=== PATIENT | female | born 1995 | race African-American/Black ===

== ENCOUNTER 2018-06-05 16:54 | Outpatient (CLI) | payer OTHER ==
--- NOTE | 2018-06-05 22:30 | Ultrasound Report ---
Reason: GROIN PAIN,RIGHT Procedure Date: 06/05/2018 Accession Number: [id number] / [id number] Procedure: US - Pelvic w/Transvaginal CPT Code: FULL RESULT: EXAM: PELVIC ULTRASOUND EXAM DATE: 06/05/2018 05:36 PM. CLINICAL HISTORY: GROIN PAIN,RIGHT. COMPARISON: None. TECHNIQUE: Realtime transabdominal pelvic scan performed to identify the uterus and adnexa and as an overview of other pelvic structures, followed by transvaginal scan to provide greater detail of the uterus and adnexa, with static image documentation. FINDINGS: Uterus: 7.4 x 2.5 x 3.8 cm, volume 36.8 cc. Anteverted position. Normal overall size and echotexture. Masses: None. Endometrium: 2 mm. No focal endometrial abnormalities. Cervix: Unremarkable. Right Ovary: 3.3 x 2.5 x 2.6 cm, volume 11.2 cc. Normal echotexture and blood flow. Left Ovary: 2.3 x 1.7 x 2.9 cm, volume 5.9 cc. Normal echotexture and blood flow. Free Fluid: None. Other: None. IMPRESSION: No acute sonographic abnormalities. RADIA
== END 2018-06-05 16:55 | disposition home or self-care (01) ==
LOC: DI 16:54
PROVIDERS: ATTEND Internal Medicine Gastroenterology
DX: R10.31 Right lower quadrant pain (principal)
CPT/HCPCS: 76830; 76856

== ENCOUNTER 2018-07-10 08:03 | Day surgery (SDC) | payer OTHER ==
[2018-07-10] MEDS ORDERED: LACTATED RINGERS 1,000 ML IV ONE (08:15)
[2018-07-10 08:29] LABS: HCG UR QUAL NEGATIVE
--- NOTE | 2018-07-10 08:45 | ANESTHESIA ---
Pre-Anesthesia VS, & Labs - Diagnosis Left lower quadrant ABD pain - Procedure Diagnostic Laparoscopy Vital Signs: Temp Pulse Resp BP Pulse Ox 36 C L 80 16 119/77 0 L 07/10/18 08:19 07/10/18 08:19 07/10/18 08:19 07/10/18 08:19 07/10/18 08:19 Height 5 ft 9.69 in Weight (kg) 63.2 kg - Is Patient ?: No - Lab Results Lab results reviewed: Yes Home Medications and Allergies Home Medications: Ambulatory Orders Desogestrel-Ethinyl Estradiol [Desogest-Eth Estra 0.15-0.03MG] 1 each PO 07/07/18 Desogestrel-Ethinyl Estradiol [Desogest-Eth Estra 0.15-0.03MG] 1 each PO 07/07/18 Allergies/Adverse Reactions: Allergies Allergy/AdvReac Type Severity Reaction Status Date / Time No Known Drug Allergies Allergy Verified 07/07/18 10:54 Anes History & Medical History - Anesthetic History Anesthesia Complications: reports: No previous complications Family history of Anesthesia Complications: Denies Family history of Malignant Hyperthermia: Denies - Medical History Cardiovascular: reports: None Pulmonary: reports: None Gastrointestinal: reports: None Urinary: reports: None, Other Neuro: reports: None Musculoskeletal: reports: None Endocrine/Autoimmune: reports: None Blood Disorders: reports: None Skin: reports: None Smoking Status: Never smoker Psychosocial: reports: No issues indicated - Surgical History General: Other Exam General: Alert, Oriented x3, Cooperative, No acute distress Dental: WNL Mouth Openin Fingerbreadth Neck Mobility: Normal Mallampati classification: I Thyromental Distance: 4-6 cm Respiratory: Lungs clear Cardiovascular: Regular rate Mental/Cognitive Status: Alert/Oriented X3 Cognitive Status: Within normal limits Plan Anesthesia Type: General Consent for Procedure(s) Verified and Reviewed: Yes Code Status: Attempt Resuscitation ASA classification: 1-Healthy patient Is this case an emergency?: No
[2018-07-10] MEDS ORDERED: BUPIVACAINE 0.5%-EPI 1:200000 PF 30 ML VIAL ONE (09:05)
[2018-07-10] MEDS ORDERED: LIDOCAINE-MPF 2% 5 ML VIAL IM ONE (09:32)
[2018-07-10] MEDS ORDERED: MIDAZOLAM 2 MG/2 ML VIAL IVP ONE (09:32)
[2018-07-10] MEDS ORDERED: KETOROLAC 30 MG/ML VIAL IVP ONE (09:32)
[2018-07-10] MEDS ORDERED: DEXAMETHASONE 4 MG/ML VIAL IVP ONE (09:32)
[2018-07-10] MEDS ORDERED: fentaNYL 100 MCG/2 ML VIAL IVP ONE (09:32)
[2018-07-10] MEDS ORDERED: ROCURONIUM 50 MG/5 ML VIAL IVP ONE (09:32)
[2018-07-10] MEDS ORDERED: NEOSTIGMINE 1 MG/1 ML 10 ML MDV IVP ONE (09:32)
[2018-07-10] MEDS ORDERED: GLYCOPYRROLATE 1 MG/5 ML VIAL IVP ONE (09:32)
[2018-07-10] MEDS ORDERED: BUPIVACAINE 0.5%-EPI 1:200000 PF 30 ML VIAL SUBQ ONE (09:46)
[2018-07-10] MEDS ORDERED: HYDROcod/ACETAM 10 MG/325 MG TABLET PO PRN (10:00)
--- NOTE | 2018-07-10 10:03 | OPERATIVE REPORT ---
Operative Report - General Procedure Date: 07/10/18 Planned Procedure: Diagnostic laparoscopy Pre-Op Diagnosis: Right lower quadrant pain of uncertain etiology Procedure Performed: Diagnostic laparoscopy Post Op Diagnosis: Same as above - Procedure Note Primary Surgeon: Black Secondary Surgeon: Tesfaye Anesthesia Provider: Carolyn Anesthesia Technique: General ET tube IV Fluids (mL): 500 Estimated Blood Loss (mL): 5 Urine Output (mL): 20 Indications: 11-month history of right lower quadrant abdominal pain which started after playing disc golf Findings: Exam under anesthesia: The uterus was of normal size, shape, and consistency. The adnexa were benign. Exam under anesthesia: Uterus, tubes, ovaries, anterior and posterior cul-de-sacs, ovarian fossae, appendix, and liver edge all appeared unremarkable. There was no obvious explanation for right lower quadrant pain. - Other Other Information/Narrative: The patient was brought to the operating room, placed supine on the operating table and given general oroendotracheal anesthesia. She was then placed in low lithotomy stirrups and prepped and draped in the usual sterile fashion. A timeout was performed. An exam under anesthesia was performed. A speculum was inserted into her vagina and a uterine manipulator inserted through the cervix into the uterus. Attention was returned to the abdomen where the umbilicus was infiltrated with 5 ml of 0.5% Marcaine and a vertical stab incision was made. A Veress needle was inserted in the abdomen and its position verified by hanging drop technique. The abdomen was insufflated to 2L of CO2, after which the Veress needle was replaced with a 5mm laparoscope and sleeve which allowed visualization of entry into the abdomen. The trocar was removed and replaced by the laparoscope which was used to view the abdominal contents as previously noted. A 5mm trocar was placed under direct visualization in the left lower quadrant lateral to the inferior epigastric vessels after the injection of 5 ml of 0.5% Marcaine followed by a stab incision. Instruments were removed from the abdomen which was then desufflated to the exte nt possible. The incisions were closed with Dermabond and the patient was taken to the recovery room in stable condition.
[2018-07-10] MEDS ORDERED: fentaNYL 100 MCG/2 ML VIAL ONE (10:31)
[2018-07-10 11:58] VITALS: BP 118/68
== END 2018-07-10 08:04 | disposition home or self-care (01) ==
LOC: SDS 08:03
PROVIDERS: ATTEND Obstetrics & Gynecology
PROC: 0WJJ4ZZ Inspection of Pelvic Cavity, Percutaneous Endoscopic Approach (ICD-10-PCS; principal; 2018-07-10 09:00)
DX: R10.31 Right lower quadrant pain (principal)
CPT/HCPCS: 49320; 81025; A9270; J7120